=== PATIENT | male | born 1980 | race Caucasian/White ===

== ENCOUNTER 2016-08-26 05:48 | Inpatient (IN) | payer OTHER ==
--- NOTE | ~2016-08-26 | OP ---
Record Of Operation [facility] [address] [place]. [address] NAME: PRIYANKA CHAVEZ : 82 STATUS : DIS IN PAT#: [id number] AGE: 36 ADM/REG DATE : 08/26/16 MR#: [id number] REPORT SERV DATE: 08/29/16 DICTATED BY: ADAN CLEMENTE II DATE: 08/29/16 REPORT STATUS : Draft TRANSCRIBED BY: MODL DATE: 08/29/16 DATE OF PROCEDURE: 08/26/2016 PREOPERATIVE DIAGNOSES: 1. L5-S1 spondylolisthesis. 2. L5-S1 recurrent stenosis with associated facet fracture. 3. Left lower extremity severe radiculopathy. 4. L5-S1 instability. POSTOPERATIVE DIAGNOSES: 1. L5-S1 spondylolisthesis. 2. L5-S1 recurrent stenosis with associated facet fracture. 3. Left lower extremity severe radiculopathy. 4. L5-S1 instability. PROCEDURE: 1. Revision facetectomy for decompression of the L5 and S1 nerve roots. 2. Interbody arthrodesis, L5-S1. 3. Application of prosthetic device, L5-S1. 4. Posterolateral arthrodesis, L5-S1. 5. Posterior nonsegmental instrumentation, L5-S1. 6. Use of local autograft, allograft substitute, and bone morphogenic protein. 7. Use of the microscope and stereotactic spinal imaging. SURGEON: Adan Clemente M.D. FLUIDS: 2700 mL LR. ESTIMATED BLOOD LOSS: 75 mL. DRAINS: One drain. COMPLICATIONS: No complications. ANTIBIOTIC: Preoperatively. IMPLANTS: Alphatec. 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 He did very well following a diskectomy. However, he has gone on to have worsening pains again with what appears to be a facet fracture as well as instability of the joint. He also appears to have, from my recollection, a possible pars defect with some abnormal morphology of the facet. We discussed the pros and cons of continuing nonoperative care versus surgery. He was in extreme pain. The pain was nonsignificant in the back but more so in the leg. I discussed with him and his that if he had primarily back pain, I would significantly consider Record Of Operation [facility] [address] [address] NAME: PRIYANKA CHAVEZ : 82 STATUS : DIS IN PAT#: [id number] AGE: 36 ADM/REG DATE : 08/26/16 MR#: [id number] REPORT SERV DATE: 08/29/16 DICTATED BY: ADAN CLEMENTE II DATE: 08/29/16 REPORT STATUS : Draft TRANSCRIBED BY: MODL DATE: 08/29/16 also performing surgery on L4-L5. However, given the fact that he does not have significant back pain, I felt the surgery should be isolated to L5-S1 only. DESCRIPTION OF PROCEDURE: After informed consent was obtained, the patient was brought to the operating room at his request and general anesthesia achieved. He was placed in the prone position and the back was prepped and draped in a sterile fashion. A stereotactic spinal pin was placed into the iliac crest on the right followed by completion of the intraoperative CT scan. Stereotactic guidance was then used throughout the case. Next, a minimally invasive incision was performed on the left at L5-S1. The quadrant retractor was placed and the sacral ala and L5 transverse process exposed. The microscope was now brought into place and under microscopic visualization, the revision laminectomy and facetectomy were performed. The facet fracture was identified. This was essentially at the junction of the pars and the facet. There was also an area again consistent with a chronic pars defect. This appeared to be loose and causing compression of the L5 nerve root. At this point, this fragment was removed and the L5 nerve root well-decompressed. The S1 nerve root was also examined and moderate compression noted from residual ligamentum flavum. This was also removed and the L5 and S1 nerve roots were now found to be very well-decompressed. Next, the interbody arthrodesis was initiated with the annulotomy. The S1 nerve root was gently retracted followed by diskectomy with the pituitary rongeurs, Kerrison rongeurs, and the lloyd. The endplates were denuded of their cartilage. Punctate bleeding bone was identified on both endplates. Following irrigation, the prosthetic device was placed into the anterior column. We also placed a very small amount of bone morphogenic protein into the anterior column along with allograft substitute and local autograft. Next, the pedicle screws were applied bilaterally. Percutaneous screws were placed on the right. The left screws were placed through the primary incision. A repeat CT scan confirmed acceptable placement of the implants. The rods were then well-tightened. Next, the decortication was performed of the transverse process of L5 and the sacral ala. Local autograft, allograft substitute, and bone morphogenic protein were then placed along these decorticated surfaces. Standard closure was performed over a drain. The dressings were applied, and the patient was then extubated and transferred to PACU in stable condition. MARLEEN/ALEX Adan Clemente II, M.D. / [id number] CC: Adan Clemente II, M.D. Record Of Operation [address] [address] NAME: PRIYANKA CHAVEZ : 82 STATUS : DIS IN PAT#: [id number] AGE: 36 ADM/REG DATE : 08/26/16 MR#: [id number] REPORT SERV DATE: 08/29/16 DICTATED BY: ADAN CLEMENTE II DATE: 08/29/16 REPORT STATUS : Draft TRANSCRIBED BY: ALEX DATE: 08/29/16 Marva Baker M.D.
[~2016-08-26 05:48] MED LIST: METHOC750B PO; NORCO1 TAB PO; ULTRAM50 PO
[2016-08-28] MEDS ORDERED: PERCOCET 7.5/321 TAB PO (09:27)
[2016-08-28] MEDS ORDERED: V2 PO (09:27)
[2016-08-28] MEDS ORDERED: MSCONTIN PO (09:27)
[2016-08-28] MEDS ORDERED: ULTRAM50 PO (09:28)
== END 2016-08-28 18:48 | disposition home or self-care (01) | DRG 460 ==
LOC: SDC/OF 05:48 → PACU 10:41 → 3SO 12:05
PROVIDERS: Orthopaedic Surgery
PROC: 0SG30AJ Fusion of Lumbosacral Joint with Interbody Fusion Device, Posterior Approach, Anterior Column, Open Approach (ICD-10-PCS; principal; 2016-08-26 07:00)
PROC: 0SG3071 Fusion of Lumbosacral Joint with Autologous Tissue Substitute, Posterior Approach, Posterior Column, Open Approach (ICD-10-PCS; 2016-08-26 07:00)
PROC: 4A11X4G Monitoring of Peripheral Nervous Electrical Activity, Intraoperative, External Approach (ICD-10-PCS; 2016-08-26 07:00)
DX: M51.17 Intervertebral disc disorders with radiculopathy, lumbosacral region (principal); S32.059A Unspecified fracture of fifth lumbar vertebra, initial encounter for closed fracture
CPT/HCPCS: 82962; 88304; 88311; 97116-GP; 97161-GP; A9270-GY; C1713; C1768; C1769; J0690; J1170; J2175; J2250; J2405; J2550; J2710; J3010